=== PATIENT | female | born 1960 | race Caucasian/White ===

== ENCOUNTER → 2017-05-09 | Outpatient (CLI) | payer BC ==
[~2017-05-09] MED LIST: PERCOCET 10-321 EACH PO
== END ==
LOC: EMI 10:00
DX: R42 Dizziness and giddiness (principal); R51 Headache; H93.19 Tinnitus, unspecified ear; R26.81 Unsteadiness on feet
CPT/HCPCS: 70553; A9577; J7050

== ENCOUNTER 2021-02-06 07:05 | Emergency (ER) | payer BC ==
[~2021-02-06 07:05] MED LIST changes: +IBUPROFEN800 MG PO
[2021-02-06 09:29] LABS: HEMOGLOBIN 14.5 gm/dl (12.3-15.3); RED BLOOD COUNT 4.92 M/UL (4.00-5.10); WHITE BLOOD COUNT 6.9 K/UL (4.5-11.0)
[2021-02-06 09:47] LABS: BUN/CREATININE RATIO 15 (0-10)
[2021-02-06] MEDS ORDERED: ZOFRAN ODT 4 MG4 MG SL (10:24)
[2021-02-06] MEDS ORDERED: PHENERGAN 25 MG25 M1 PO (10:24)
[2021-04-01] MEDS ORDERED: ESCITALOPRAM OX10 MG PO (06:44)
[2021-04-01] MEDS ORDERED: AMLODIPINE BESYL5 MG PO (06:44)
[2021-04-01] MEDS ORDERED: LISINOPRIL5 MG PO (06:45)
[2021-04-01] MEDS ORDERED: LEVOTHYROXINE150 MCG PO (06:45)
[2021-04-01] MEDS ORDERED: METFORMIN HCL750 MG PO (06:46)
[2021-04-01] MEDS ORDERED: MONTELUKAST SOD10 MG PO (06:47)
== END 2021-02-06 11:34 | disposition home or self-care (01) ==
LOC: ER1 07:05
PROVIDERS: Emergency Medicine
DX: U07.1 COVID-19 (principal); E11.9 Type 2 diabetes mellitus without complications; I10 Essential (primary) hypertension; Z85.3 Personal history of malignant neoplasm of breast; Z85.850 Personal history of malignant neoplasm of thyroid; Z90.710 Acquired absence of both cervix and uterus
CPT/HCPCS: 80053; 85025; 96365; 96375; 99284; J1885; J2405

== ENCOUNTER → 2021-04-01 | Day surgery (SDC) | payer BC ==
[~2021-04-01] MED LIST changes: +AMLODIPINE BESYL5 MG PO; +ESCITALOPRAM OX10 MG PO; +LEVOTHYROXINE150 MCG PO; +LISINOPRIL5 MG PO; +METFORMIN HCL750 MG PO; +MONTELUKAST SOD10 MG PO; +PHENERGAN 25 MG25 M1 PO; +ZOFRAN ODT 4 MG4 MG SL
== END | disposition home or self-care (01) ==
LOC: OR 06:09
DX: Z12.11 Encounter for screening for malignant neoplasm of colon (principal); E11.65 Type 2 diabetes mellitus with hyperglycemia; E78.5 Hyperlipidemia, unspecified; I10 Essential (primary) hypertension; E89.0 Postprocedural hypothyroidism; F32.9 Major depressive disorder, single episode, unspecified; K21.9 Gastro-esophageal reflux disease without esophagitis; M10.9 Gout, unspecified; F41.9 Anxiety disorder, unspecified; G47.33 Obstructive sleep apnea (adult) (pediatric); G25.81 Restless legs syndrome; E66.9 Obesity, unspecified; Z86.16 Personal history of COVID-19; Z68.41 Body mass index [BMI] 40.0-44.9, adult; Z79.84 Long term (current) use of oral hypoglycemic drugs; Z79.899 Other long term (current) drug therapy
CPT/HCPCS: 82962; J2704; J7030

== ENCOUNTER → 2021-11-21 | Outpatient (CLI) | payer BC | LOC: EXRD 13:31 | DX: M25.562 Pain in left knee (principal); M25.552 Pain in left hip; M47.816 Spondylosis without myelopathy or radiculopathy, lumbar region | CPT/HCPCS: 72100; 73502; 73564 ==

== ENCOUNTER → 2022-04-13 | Outpatient (CLI) | payer BC | LOC: EXRD 14:37 | DX: M25.511 Pain in right shoulder (principal); S42.291A Other displaced fracture of upper end of right humerus, initial encounter for closed fracture | CPT/HCPCS: 73030 ==

== ENCOUNTER → 2022-07-03 | Outpatient (CLI) | payer BC | LOC: RAD 16:03 | DX: M79.671 Pain in right foot (principal) | CPT/HCPCS: 73620 ==